=== PATIENT | male | born 1965 | race American Indian/Alaskan Native ===

== ENCOUNTER 2019-01-15 10:31 | Emergency (ER) | payer SELFPAY ==
[2019-01-15 10:53] VITALS: BP 125/76
--- NOTE | 2019-01-15 10:53 | Emergency Department Report ---
Blank Doc - Documentation Documentation: 53 y o male presents to ED with Right eye sharp pain while at work this afterno on vision intact blue small tape removed rom eye with cutip in triage assess for abrasion ACC evalutae
--- NOTE | 2019-01-15 13:42 | Emergency Department Report ---
ED Eye Problem HPI - General Chief complaint: Eye Problems Stated complaint: (R) EYE IRRIATION Time Seen by Provider: 01/15/19 10:49 Source: patient Mode of arrival: Ambulatory Limitations: No Limitations - History of Present Illness Initial comments: Patient is a 53-year-old -[place] male who is coming in secondary to perform body sensation in his right eye. Patient states he was sitting in his office and he felt pain in the eye. Patient states as he is moving his eye feels as though something is moving. He has no loss of vision but does have some tearing. Patient states pain is minimal to 10. - Related Data Previous Rx's Medication Instructions Recorded Last Taken Type Gentamicin 0.3% Ophth Soln 2 drops OP Q4H #1 bottle 01/15/19 Unknown Rx Allergies Allergy/AdvReac Type Severity Reaction Status Date / Time No Known Allergies Allergy Unverified 01/15/19 10:32 ED Review of Systems ROS: Stated complaint: (R) EYE IRRIATION Other details as noted in HPI Comment: All other systems reviewed and negative ED Past Medical Hx - Past Medical History Previous Medical History?: No - Surgical History Past Surgical History?: No - Social History Smoking Status: Never Smoker Substance Use Type: Alcohol - Medications Home Medications: Home Medications Medication Instructions Recorded Confirmed Last Taken Type Gentamicin 0.3% Ophth Soln 2 drops OP Q4H #1 bottle 01/15/19 Unknown Rx ED Physical Exam - General Limitations: No Limitations General appearance: alert, in no apparent distress - Head Head exam: Present: atraumatic, normocephalic - Eye Eye exam: Present: normal appearance, PERRL, EOMI, other (small blue foreign body was removed in triage from the patient's cornea. Gross visual acuity is normal) - ENT ENT exam: Present: mucous membranes moist - Neck Neck exam: Present: normal inspection - Respiratory Respiratory exam: Present: normal lung sounds bilaterally. Absent: respiratory distress - Cardiovascular Cardiovascular Exam: Present: regular rate, normal rhythm. Absent: systolic murmur, diastolic murmur, rubs, gallop - GI/Abdominal GI/Abdominal exam: Present: soft, normal bowel sounds - Rectal Rectal exam: Present: deferred - Extremities Exam Extremities exam: Present: normal inspection - Back Exam Back exam: Present: normal inspection - Neurological Exam Neurological exam: Present: alert, oriented X3 - Psychiatric Psychiatric exam: Present: normal affect, normal mood - Skin Skin exam: Present: warm, dry, intact, normal color. Absent: rash ED Course Vital Signs 01/15/19 10:49 Temperature 97.8 F Pulse Rate 66 Respiratory 16 Rate Blood Pressure 125/76 [Right] O2 Sat by Pulse 98 Oximetry ED Medical Decision Making - Medical Decision Making Physical for body was removed from the outside patient's right eye. The patient be started on drops for probable corneal abrasion. I did not feel sustained in the patient's eye was necessary at this time. Critical care attestation.: If time is entered above; I have spent that time in minutes in the direct care of this critically ill patient, excluding procedure time. ED Disposition Clinical Impression: Cornea abrasion Qualifiers: Encounter type: initial encounter Laterality: right Qualified Code(s): S05.01XA - Injury of conjunctiva and corneal abrasion without foreign body, right eye, initial encounter FB eye Qualifiers: Encounter type: initial encounter Laterality: right Qualified Code(s): T15.91XA - Foreign body on external eye, part unspecified, right eye, initial encounter Disposition: DC-01 TO HOME OR SELFCARE Is pt being admited?: No Does the pt Need Aspirin: No Condition: Stable Instructions: Corneal Abrasion (ED) Referrals: JAKE MENDEZ MD [Primary Care Provider] - 3-5 Days Time of Disposition: 13:42
== END 2019-01-15 13:50 | disposition home or self-care (01) ==
LOC: ED 10:31
DX: S05.01XA Injury of conjunctiva and corneal abrasion without foreign body, right eye, initial encounter (principal); T15.91XA Foreign body on external eye, part unspecified, right eye, initial encounter; X58.XXXA Exposure to other specified factors, initial encounter; Y93.89 Activity, other specified; Y92.89 Other specified places as the place of occurrence of the external cause; Y99.8 Other external cause status